=== PATIENT | male | born 1970 | race Caucasian/White ===

== ENCOUNTER 2019-12-02 12:31 | Emergency (ER) | payer OTHER, SELFPAY ==
--- NOTE | ~2019-12-02 | XR_ITS ---
EXAMINATION: XR hand RT min 3V DATE: 12/02/2019 12:50 INDICATION: Nontraumatic right hand pain and swelling TECHNIQUE: Posteroanterior, oblique and lateral views of the right hand were obtained. COMPARISON: None. FINDINGS: Alignment is normal. No fracture. Mild polyarticular osteoarthritis at the wrist, triscaphe, fifth me tacarpophalangeal and septal interphalangeal joints. No cortical erosions to suggest inflammatory art hritis. Bone island at the first distal phalanx. Soft tissues are unremarkable. IMPRESSION: 1. Mild polyarticular osteoarthritis. No acute osseous abnormality. Reviewed, dictated and finalized at location B.
[2019-12-02 12:43] VITALS: BP 131/74; PULSE 62; RESP 16; TEMP 36.6; O2SAT 98
--- NOTE | 2019-12-02 12:44 | ED.UPPEXIN ---
HPI - Extremity Injury (Upper) General Chief Complaint: Extremity Injury, Upper Stated Complaint: rt hand pain Time Seen by Provider: 12/02/19 12:44 Source: patient and RN notes reviewed Mode of arrival: ambulatory Limitations: no limitations History of Present Illness HPI narrative: 49 year old male who [facility] with complaints of pain to his right dorsal hand for one week duration. Patient states that on last Thursday he was working on a car at home but he states he does not know of any specific injury to his right hand. Patient has no bruising or redness to his right hand but swelling is noted especially over 4th and 5th metacarpals. Patient states that he does not normally have as much strength to his right hand in comparison to his left since childhood due to either blood clot or injury when he was an infant and right hand is smaller in comparison to left. Patient states that he was at work last night lifting on boxes and it has aggravated his pain to his right hand. MD complaint: injury to: right and hand Onset (ago): week(s) (1 week) Other Extremity Injury: Right: hand Other injuries: none Handedness: left Place: home Severity: moderate Severity scale (1-10): 5 Relieving factors: rest Exacerbating factors: movement of extremity Context: other (unsure) Associated symptoms: weakness (swelling dorsal right hand) Treatments prior to arrival: other (Tylenol and put heat on hand) Related Data Home Medications Medication Instructions Recorded Confirmed fluticasone propionate [Flonase] 2 spray INTRANASAL DAILY 12/02/19 12/02/19 Allergies Allergy/AdvReac Type Severity Reaction Status Date / Time No Known Allergies Allergy Verified 12/02/19 12:45 Review of Systems Review of Systems: Narrative: CONSTITUTIONAL: Denies fever, chills, or sweats. EYES: Denies visual changes, redness, or discharge. ENT: Denies rhinorrhea, congestion, sore throat, or otalgia. CARDIOVASCULAR: Denies chest pain, palpitations, or edema. RESPIRATORY: Denies cough or dyspnea. GASTROINTESTINAL: Denies abdominal pain, nausea, vomiting, or diarrhea. GENITOURINARY: Denies dysuria or hematuria. SKIN: Denies rash or itching. MUSCULOSKELETAL: Denies back pain,positive for right hand pain, or myalgia. NEUROLOGIC: Denies headache, numbness, or weakness. PSYCHIATRIC: Denies anxiety or depression. All systems reviewed & are unremarkable except as noted in HPI and below PMFSH Past Medical History Medical History (Updated 12/02/19 @ 17:32 by Deirdre Gaitan NP) Weakness of left hand Social History Social History (Updated 12/02/19 @ 17:31 by Deirdre Gaitan NP) Tobacco type: e-cigarettes/vaping Living arrangements: with family Gender identity (if verbalized by the patient): Male Comments At time of signature, agree with nursing past medical, surgical, social history. There is no relevant family history pertinent to the presenting complaint Exam Narrative: Exam Narrative: GENERAL: Well-appearing, well-nourished, and in no acute distress. HEAD: Normocephalic, atraumatic. EYES: PERRLA and EOMI. ENT: Nares clear, no rhinorrhea or epistaxis. Mucous membranes moist. NECK: Supple. no lymphadenopathy CHEST: Clear to auscultation. No respiratory distress. HEART: Regular rate and rhythm. No murmur heard. Normal peripheral pulses. ABDOMEN: Soft, nontender, nondistended, normal active bowel sounds. EXTREMITIES: Normal range of motion. trace edema dorsal right hand with no redness or bruising noted, right hand has strong right radial pulses, noted decrease in size of right hand in comparison to his left hand with some weakness of hand in comparison to left. SKIN: Warm, dry, no rash. NEURO: No focal deficits. Alert and oriented x3. Course Vital Signs Vital signs: Vital Signs Temperature 36.6 C 12/02/19 12:43 Pulse Rate 62 12/02/19 12:43 Respiratory Rate 16 12/02/19 12:43 Blood Pressure 131/74 12/02/19 12:43 Pulse Oximetr
== END 2019-12-02 13:30 | disposition home or self-care (01) ==
PROVIDERS: Emergency Provider Registered Nurse
DX: S60.221A Contusion of right hand, initial encounter (principal); X58.XXXA Exposure to other specified factors, initial encounter; M19.041 Primary osteoarthritis, right hand; F17.200 Nicotine dependence, unspecified, uncomplicated
CPT/HCPCS: 73130; 99213; G0463